=== PATIENT | male | born 1955 | race African-American/Black ===

== ENCOUNTER 2023-05-04 12:09 | Inpatient (IN) | payer OTHER ==
[~2023-05-04] VITALS: Ht 167.6 cm; Wt 84.0 kg
[2023-05-04] VITALS (348 sets, daily range): BP systolic 135–228; BP diastolic 88–151; PULSE 64–75; TEMP 97.8–98; O2SAT 86–100
[2023-05-04 14:12] LABS: BASO % 0.4 % (0.0-2.0); EOS # 0.2 K/mm3 (0.0-0.7); EOS % 3.3 % (0.0-4.0); GRAN % 60.9 % (42.2-75.2); HEMATOCRIT 44.9 % (42.0-52.0); HEMOGLOBIN 14.9 g/dl (13.5-18.0); LYMPH # 1.3 K/mm3 (1.2-3.4); LYMPH % 27.3 % (20.0-51.0); MEAN CELL VOLUME 100 fl (80.0-100.0); MEAN CORPUSCULAR HEMOGLOBIN 33 pg (27-31); MEAN CORPUSCULAR HGB CONC 33 g/dl (33.0-37.0); MEAN PLATELET VOLUME 13.9 fl (7.4-10.4); MONO # 0.4 K/mm3 (0.1-0.6); MONO % 7.9 % (1.7-9.3); PLATELET COUNT 104 K/mm3 (130-400); REDCELL DISTRIBUTION WIDTH-CV 13.4 % (11.5-14.5)
[2023-05-04 14:21] LABS: ALBUMIN 2.4 gm/dL (3.4-4.8); BILIRUBIN,TOTAL 0.2 mg/dL (0.2-1.2); CALCIUM 9.5 mg/dL (8.4-10.2); CREATININE, serum 2.74 mg/dL (0.72-1.25); TOTAL PROTEIN 6.1 gm/dL (6.2-8.1)
[2023-05-04 14:30] LABS: TROPONIN-I 0.055 ng/mL (0.00-0.033)
[2023-05-04] MEDS ORDERED: niCARdipine 200 ML IV ONE ×2 (14:45→21:15)
[2023-05-04] MEDS ORDERED: Aspirin 325 MG TAB PO ONE (14:45)
[2023-05-04] MEDS ORDERED: NOVOLIN 70100 UNIT/2 SQ (15:03)
[2023-05-04] MEDS ORDERED: BYSTOLIC10 MG PO (15:03)
[2023-05-04] MEDS ORDERED: K-TAB20 PO (15:04)
[2023-05-04] MEDS ORDERED: DIABETA 5MG5 MG/TAB PO (15:08)
[2023-05-04] MEDS ORDERED: PRINIVIL40 MG PO (15:09)
[2023-05-04] MEDS ORDERED: CATAPRES-TTS 10.1 M1 TD (15:09)
[2023-05-04] MEDS ORDERED: Ondansetron 4 MG/2 ML VIAL IV PRN (15:30)
[2023-05-04] MEDS ORDERED: Polyethylene Glycol 3350 17 GM PDS PO PRN (15:30)
[2023-05-04] MEDS ORDERED: Acetaminophen 325 MG TAB PO PRN (15:30)
[2023-05-04] MEDS ORDERED: Docusate Sodium 100 MG CAP PO PRN (15:30)
[2023-05-04] MEDS ORDERED: Heparin 5,000 UNITS/ML 1 ML VIAL SQ SCH (16:00)
[2023-05-04] MEDS ORDERED: Nebivolol 10 MG **** subs to Bisoprolol 10 MG PO SCH (16:34)
[2023-05-04] MEDS ORDERED: Furosemide 40 MG/4 ML VIAL IV ONE (16:45)
[2023-05-04] MEDS ORDERED: cloNIDine 0.1 MG WEEKLY PATCH TD SCH (16:45)
[2023-05-04] MEDS ORDERED: Dextrose (Glucose) 15 GM (4 x 3.75 GM) Chewable TABLET PACK PO PRN (17:00)
[2023-05-04] MEDS ORDERED: Glucagon 1 MG VIAL IM PRN (17:00)
[2023-05-04] MEDS ORDERED: Dextrose 50% Water 25 GM/50 ML SYRINGE IV PRN (17:00)
[2023-05-04] MEDS ORDERED: Insulin Lispro (HumaLOG) SQ SCH (17:00)
[2023-05-04] MEDS ORDERED: Bisoprolol 5 MG TAB PO SCH (17:00)
[2023-05-04] MEDS ORDERED: Insulin Glargine-ygfn (Lantus) SQ SCH (21:00)
--- NOTE | 2023-05-04 22:32 | NUR ---
RT NOTIFIED BY RN AT 2202 THAT PT TOOK OFF CPAP MASK AND SAID HE DID NOT WANT TO WEAR IT ANYMORE.
[2023-05-05] VITALS (744 sets, daily range): BP systolic 145–208; BP diastolic 98–140; PULSE 62–75; TEMP 98–98.4; O2SAT 83–100
[2023-05-05 04:48] LABS: BASO % 0.5 % (0.0-2.0); EOS # 0.2 K/mm3 (0.0-0.7); EOS % 3.1 % (0.0-4.0); GRAN # 4.3 K/mm3 (1.4-6.5); GRAN % 65.4 % (42.2-75.2); HEMATOCRIT 48.1 % (42.0-52.0); HEMOGLOBIN 16.1 g/dl (13.5-18.0); LYMPH # 1.5 K/mm3 (1.2-3.4); LYMPH % 22.7 % (20.0-51.0); MEAN CELL VOLUME 98 fl (80.0-100.0); MEAN CORPUSCULAR HEMOGLOBIN 33 pg (27-31); MEAN CORPUSCULAR HGB CONC 34 g/dl (33.0-37.0); MEAN PLATELET VOLUME 13.1 fl (7.4-10.4); MONO # 0.5 K/mm3 (0.1-0.6); MONO % 8.1 % (1.7-9.3); PLATELET COUNT 101 K/mm3 (130-400); RED BLOOD COUNT 4.92 M/mm3 (4.20-5.60); REDCELL DISTRIBUTION WIDTH-CV 13.3 % (11.5-14.5)
[2023-05-05 05:00] LABS: CHOLESTEROL RISK RATIO 3.9
[2023-05-05 05:17] LABS: CALCIUM 9.1 mg/dL (8.4-10.2); CREATININE, serum 2.56 mg/dL (0.72-1.25); POTASSIUM 3.3 mmol/L (3.5-4.5)
--- NOTE | 2023-05-05 07:00 | NUR ---
REPORT RECEIVED FROM REBA LANGSTON. PT RESTING IN BE, VSS ON ROOM AIR. CARDENE INFUSING ORDERED TO PERIPHERAL IV IN L AC. PT DENIES ANY DIZZINESS OR PAIN. PT IS ALERT AND ORIENTED, CALL LIGHT IN REACH.
[2023-05-05] MEDS ORDERED: Influenza Virus Vaccine, Hi-Dose Quad '23-24 (65 YR+) 0.7 ML SYRINGE IM SCH (09:00)
[2023-05-05] MEDS ORDERED: hydrALAZINE 25 MG TAB PO SCH (09:20)
[2023-05-05] MEDS ORDERED: Bisoprolol 5 MG TAB PO ONE (11:15)
--- NOTE | 2023-05-05 11:15 | NUR ---
Social work student Linnette met with patient to discuss discharge planning. Patient reported he lives in [place] and his best point of contact is his Sandy (ph#:[phone]) who was at bedside. Patient obtains his medications from [facility] with no difficulties affording them and sees Dr. Ansari for primary care. Sandy reported she has a copy of his DPOA-HC at home. Patient is independent with all ADLS and his only DME is a CPAP. Sandy reported his CPAP is old and that he may need a new one at time of discharge. Patient said he is typically able to drive himself to and from appointments, but Sandy has recently been helping. Discharge Plan: PT/OT pending, home
--- NOTE | 2023-05-05 13:09 | NUR ---
Initial visit; Patient had friends and his present and thanked Hairspring Assembler for visiting. He and friends spoke of 'miracles' that happen and how healing takes place. Patient receptive to Hairspring Assembler visit and thanked her for offering to keep him in her prayers.
[2023-05-05] MEDS ORDERED: Furosemide 40 MG/4 ML VIAL IV ONE (14:45)
[2023-05-05] MEDS ORDERED: cloNIDine 0.2 MG WEEKLY PATCH TD SCH (16:30)
--- NOTE | 2023-05-05 21:22 | NUR ---
1919: Received report from REBA Arriola. Pt is alert and resting in bed with call light within reach. Pt's vitals are stable at this time with SBP in the 160's and DBP in the 100's, on room air, and sinus rhythm. Pt does not look in distress at this time. Pt is not on a drip at this time. Will continue with pt care. 2125: BP was slowly creeping up with BP at 189/113, hospitalist was notified and they want to start the Cardene drip to keep the SBP between 160-180. The SBP then went to 170's before the nurse was going to start the drip, so the drip has not started yet but will start it if the SBP keeps staying above 180's.
[2023-05-05] MEDS ORDERED: niCARdipine 200 ML IV SCH (22:30)
[2023-05-06] VITALS (755 sets, daily range): BP systolic 142–171; BP diastolic 98–124; PULSE 61–72; TEMP 97.5–98.3; O2SAT 79–100
[2023-05-06 05:33] LABS: HEMOGLOBIN 15.5 g/dl (13.5-18.0); MEAN CELL VOLUME 99 fl (80.0-100.0); MEAN CORPUSCULAR HEMOGLOBIN 34 pg (27-31); MEAN CORPUSCULAR HGB CONC 34 g/dl (33.0-37.0); MEAN PLATELET VOLUME 12.2 fl (7.4-10.4); PLATELET COUNT 125 K/mm3 (130-400); RED BLOOD COUNT 4.63 M/mm3 (4.20-5.60); REDCELL DISTRIBUTION WIDTH-CV 13.5 % (11.5-14.5)
[2023-05-06 05:43] LABS: CALCIUM 9.2 mg/dL (8.4-10.2); CREATININE, serum 3.08 mg/dL (0.72-1.25); POTASSIUM 3.7 mmol/L (3.5-4.5)
[2023-05-06 06:08] LABS: EOSINOPHIL 4 % (0-4); LYMPHOCYTE 32 % (20.0-51.0); NEUTROPHILS 57 % (42.0-75.2)
--- NOTE | 2023-05-06 06:08 | NUR ---
Pt's BP has been high throuhgout the night and the Cardene drip had to be started at 2226 last night to keep the SBP in the 160-180 range. Pt denied pain throughout the night. Pt wore the CPAP throughout the night with no O2 running through it and the SPO2 was stable throughout the night. Pt's other vitals were stable throughout the night. Pt woke up a couple times through the night and would call with the call light to say that he hasn't seen anyone for a long time. This nurse checked on him and reminded him that it's 1AM, 3AM, and 5AM. Then the pt realized that it's night time he would relax and go back to bed. Pt's other vitals were stable throughout the night. Pt is currently on the Cardene drip and resting in bed with the call light within reach. Will give report to day shift nurse.
[2023-05-06 06:13] LABS: PLATELET ESTIMATE DECREASED (NORMAL)
[2023-05-06 06:15] LABS: ANISOCYTOSIS 1+
--- NOTE | 2023-05-06 08:10 | NUR ---
Awake and resting in bed watching TV. Denies any shortness of breath or chest or other pain. Reports that he didn't sleep very well last night but denied any other concerns or complaints. Breakfast menu offered and patient will call in his order. Oral BP meds to be given and will attempt to stop cardene drip after meds are given if systolic BP remains less than 180. Call light left within reach.
[2023-05-06] MEDS ORDERED: hydrALAZINE 25 MG TAB PO ONE (08:15)
[2023-05-06] MEDS ORDERED: Bisoprolol 5 MG TAB PO SCH (09:00)
[2023-05-06] MEDS ORDERED: amLODIPine 10 MG TAB PO SCH (09:00)
[2023-05-06] MEDS ORDERED: hydrALAZINE 25 MG TAB PO SCH (12:00)
--- NOTE | 2023-05-06 12:26 | NUR ---
general foundry worker attended clinical rounding and was informed pt will have more medications changed. SW recieved a call from Devi [phone] from [facility] regarding discharge planning. Discharge Plan: home
[2023-05-06] MEDS ORDERED: hydrALAZINE 20 MG/ML 1 ML VIAL IV PRN (14:30)
[2023-05-07] VITALS (450 sets, daily range): BP systolic 159–176; BP diastolic 110–126; PULSE 61–69; TEMP 97.8–98.2; O2SAT 66–100
[2023-05-07 04:49] LABS: BASO % 0.6 % (0.0-2.0); EOS # 0.2 K/mm3 (0.0-0.7); EOS % 3.8 % (0.0-4.0); GRAN # 2.5 K/mm3 (1.4-6.5); GRAN % 54.2 % (42.2-75.2); HEMATOCRIT 44.5 % (42.0-52.0); HEMOGLOBIN 14.9 g/dl (13.5-18.0); LYMPH # 1.3 K/mm3 (1.2-3.4); LYMPH % 28.2 % (20.0-51.0); MEAN CELL VOLUME 98 fl (80.0-100.0); MEAN CORPUSCULAR HEMOGLOBIN 33 pg (27-31); MEAN CORPUSCULAR HGB CONC 34 g/dl (33.0-37.0); MEAN PLATELET VOLUME 13.3 fl (7.4-10.4); MONO # 0.6 K/mm3 (0.1-0.6); PLATELET COUNT 109 K/mm3 (130-400); RED BLOOD COUNT 4.56 M/mm3 (4.20-5.60); REDCELL DISTRIBUTION WIDTH-CV 13.4 % (11.5-14.5)
[2023-05-07 05:06] LABS: CREATININE, serum 2.98 mg/dL (0.72-1.25); POTASSIUM 3.6 mmol/L (3.5-4.5)
[2023-05-07] MEDS ORDERED: LIPITOR 40MG TA40 MG PO (14:07)
[2023-05-07] MEDS ORDERED: APRESOLINE50 MG PO (14:08)
[2023-05-07] MEDS ORDERED: NORVASC 10MG10 MG PO (14:08)
[2023-05-07] MEDS ORDERED: CATAPRES-TTS 20.2 M1 TD (14:08)
[2023-05-07] MEDS ORDERED: ASPIRIN E.C. 8181 MG PO (14:09)
[2023-05-07] MEDS ORDERED: BYSTOLIC20 MG PO (14:13)
--- NOTE | 2023-05-07 15:48 | NUR ---
Discharge instructions reviewed with patient and family all questions and concerns addressed at this time. Contacted a [place] nephrology group per Dr. Murray order, and faxed over patienit's info. Provieded family with contact info for this group to follow up on wednesday. Patient alert and oriented and in no distress upon discharge.
--- NOTE | 2023-05-07 20:57 | NUR ---
Patient and son called stating that they lost 2 pills that they were given prior to discharge and would like to know what they were and possibly get more if needed. Unable to know/find what was given to patient at time of discharge. Family updated and will call back with any concerns.
== END 2023-05-07 15:58 | disposition home or self-care (01) | DRG 305 ==
LOC: COL.ER 12:09 → ICU 14:53
PROVIDERS: Emergency Medicine; ADMIT Internal Medicine
DX: I16.1 Hypertensive emergency (principal); N17.9 Acute kidney failure, unspecified; N18.4 Chronic kidney disease, stage 4 (severe); D69.6 Thrombocytopenia, unspecified; G47.33 Obstructive sleep apnea (adult) (pediatric); E83.52 Hypercalcemia; R79.89 Other specified abnormal findings of blood chemistry; E11.22 Type 2 diabetes mellitus with diabetic chronic kidney disease; F17.210 Nicotine dependence, cigarettes, uncomplicated; I35.1 Nonrheumatic aortic (valve) insufficiency; I12.9 Hypertensive chronic kidney disease with stage 1 through stage 4 chronic kidney disease, or unspecified chronic kidney disease; N18.9 Chronic kidney disease, unspecified; Z79.4 Long term (current) use of insulin; Z91.148 Patient's other noncompliance with medication regimen for other reason
CPT/HCPCS: J0360; J1644; J1815; J1940; J2404; Q3014